=== PATIENT | female | born 1970 | race Caucasian/White ===

== ENCOUNTER → 2017-06-26 | Outpatient (CLI) | payer BC ==
[~2017-06-26] MED LIST: BACL-19 PO; ELET20TA PO; IBUP-1222 PO; LORA0.5T PO; OXYC-302 PO; RIVA20TA PO; ZOLP10TA PO
[2017-06-26 09:42] LABS: HEMATOCRIT 44.9 % (34.6-47.8); HEMOGLOBIN 15.6 g/dL (11.7-16.4)
[2017-06-26 09:52] LABS: BLOOD UREA NITROGEN 14 mg/dL (7-18)
[2017-06-26 09:58] LABS: ASPARTATE AMINO TRANSFERASE 10 U/L (15-37)
== END | disposition home or self-care (01) ==
LOC: STAR 08:20
PROVIDERS: ATTEND Surgery
DX: Z01.818 Encounter for other preprocedural examination (principal); R79.1 Abnormal coagulation profile
CPT/HCPCS: 36415; 80053; 84703; 85025; 85610; 93005

== ENCOUNTER 2017-07-06 06:39 | Day surgery (SDC) | payer BC ==
[~2017-07-06] VITALS: Ht 175.3 cm; Wt 70.2 kg
[2017-07-06] MEDS ORDERED: LIDOCAINE 1%, 20ML ONE (08:21)
[2017-07-06] MEDS ORDERED: EPINEPHRINE 1 MG/ML, 1ML ONE (08:30)
[2017-07-06] MEDS ORDERED: BUPIVACAINE/PF 0.5% ONE (08:30)
[2017-07-06] MEDS ORDERED: MIDAZOLAM 1 MG/ML, 2ML ONE (08:33)
[2017-07-06] MEDS ORDERED: FENTANYL PF 250 MCG/5ML ONE (08:34)
[2017-07-06] MEDS ORDERED: LIDOCAINE 1%, 2ML ONE (08:37)
[2017-07-06] MEDS ORDERED: LACTATED RINGERS 1,000 ML IV SCH (08:44)
[2017-07-06 08:45] VITALS: BP 115/79
[2017-07-06] MEDS ORDERED: GLYCOPYRROLATE 0.2MG/1ML, 5ML ONE (08:58)
[2017-07-06] MEDS ORDERED: PROPOFOL 10 MG/ML, 20ML ONE (08:58)
[2017-07-06] MEDS ORDERED: DEXAMETHASONE 4 MG/ML, 5ML ONE (08:58)
[2017-07-06] MEDS ORDERED: ONDANSETRON 2MG/ML, 2ML ONE (08:58)
[2017-07-06] MEDS ORDERED: CEFAZOLIN 1,000 MG ONE (08:58)
[2017-07-06] MEDS ORDERED: ACETAMINOPHEN 325 MG TABLET PO PRN (09:30)
[2017-07-06] MEDS ORDERED: OXYcodone 5 MG/5 ML ORAL.SOL UDC PO PRN (09:30)
[2017-07-06] MEDS ORDERED: PROMETHAZINE 25 MG/ML, 1ML IV PRN (09:30)
[2017-07-06] MEDS ORDERED: FENTANYL PF 100 MCG/2ML IV PRN (09:30)
[2017-07-06] MEDS ORDERED: ACETAMINOPHEN 650 MG/20.3 ML UDC ONE (10:19)
[2017-07-06] MEDS ORDERED: OXYcodone 5 MG/5 ML ORAL.SOL UDC ONE (10:20)
[2017-07-06] MEDS ORDERED: KETOROLAC 30 MG/1 ML ONE (10:58)
[2017-07-06] MEDS ORDERED: KETOROLAC 30 MG/1 ML IVPush ONE (11:00)
== END 2017-07-06 11:35 | disposition home or self-care (01) ==
LOC: CFH 06:39 → EDSTATUS 07:00 → OUT 11:35
PROVIDERS: ATTEND Surgery
DX: D24.1 Benign neoplasm of right breast (principal); Z91.018 Allergy to other foods; Z88.0 Allergy status to penicillin; Z86.718 Personal history of other venous thrombosis and embolism; Z98.890 Other specified postprocedural states; Z88.8 Allergy status to other drugs, medicaments and biological substances
CPT/HCPCS: 19285; 19301; 76098; 88307; G0206; J0171; J0330; J0690; J1100; J1885; J2250; J2405; J2704; J3010; J3490; J7120